=== PATIENT | female | born 2000 | race Caucasian/White ===

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

== ENCOUNTER 2018-01-31 10:15 | Emergency (ER) | payer OTHER ==
--- NOTE | 2018-01-31 10:44 | ED ---
GI/ HPI - HPI Summary HPI Summary: 17-year-old female presents with cough for the past couple days. She admits to lower abdominal pain. She states she may be . Last menstrual period was December 19. She states she's been having abnormal vaginal discharge. She was admits to dysuria urgency and frequency. She denies any flank pain. She states she's been having fevers. She states feels very fatigued. cough is dry. she also admits to sore throat. no sinus congestion. - History of Current Complaint Chief Complaint: UCGeneralIllness Time Seen by Provider: 01/31/18 10:34 Stated Complaint: COUGH,TIRED Hx Last Menstrual Period: 12/19/17 Pain Intensity: 0 - Allergy/Home Medications Allergies/Adverse Reactions: Allergies Allergy/AdvReac Type Severity Reaction Status Date / Time No Known Allergies Allergy Verified 01/31/18 10:30 Home Medications: Home Medications Acetaminophen [Acetaminophen Extra Strength] 1 tab PO TID PRN 01/31/18 [History Confirmed 01/31/18] PMH/Surg Hx/FS Hx/Imm Hx Endocrine/Hematology History: Denies: Hx Diabetes Cardiovascular History: Denies: Hx Hypertension, Hx Pacemaker/ICD Sensory History: Denies: Hx Hearing Aid Psychiatric History: Reports: Hx Anxiety - stopped prozac w/, Hx Depression - stopped prozac w/ Denies: Hx Eating Disorder, Hx Panic Disorder, Hx of Violent Episodes Against Others - Immunization History Date of Tetanus Vaccine: up to date Infectious Disease History: No Infectious Disease History: Denies: Traveled Outside the [place] in Last 30 Days - Family History Known Family History: Positive: Respiratory Disease, Other - asthma (Mother and Brother) - Social History Alcohol Use: Rare Substance Use Type: Reports: None Substance Use Comment - Amount & Last Used: in the past Smoking Status (MU): Light Every Day Tobacco Smoker Type: Cigarettes Amount Used/How Often: 1/2 ppd Length of Time of Smoking/Using Tobacco: started at age 14 Have You Smoked in the Last Year: No Review of Systems Positive: Fever Positive: Sore Throat Negative: Chest Pain Positive: Cough. Negative: Shortness Of Breath Positive: Abdominal Pain, Nausea, Other - vaginal discharge Positive: dysuria All Other Systems Reviewed And Are Negative: Yes Physical Exam Triage Information Reviewed: Yes Vital Signs On Initial Exam: Initial Vitals Temp Pulse Resp BP Pulse Ox 99.8 F 105 19 128/79 100 01/31/18 10:25 01/31/18 10:25 01/31/18 10:25 01/31/18 10:25 01/31/18 10:25 Vital Signs Reviewed: Yes Appearance: Positive: Well-Appearing Skin: Positive: Warm, Dry Head/Face: Positive: Normal Head/Face Inspection Eyes: Positive: Normal, EOMI, APARNA, Conjunctiva Clear ENT: Positive: Normal ENT inspection, Pharynx normal, TMs normal Neck: Positive: Supple, Nontender, No Lymphadenopathy Respiratory/Lung Sounds: Positive: Clear to Auscultation, Breath Sounds Present Cardiovascular: Positive: Normal, RRR Abdomen Description: Positive: Soft, Other: - suprapubic tenderness Bowel Sounds: Positive: Present Pelvic Exam: Positive: External Exam Normal, Discharge - yellow, Tender w/ Cervical Motion - not extremely tender, Other Musculoskeletal: Positive: Normal Neurological: Positive: Normal Psychiatric: Positive: Normal Diagnostics - Vital Signs Vital Signs Temp Pulse Resp BP Pulse Ox 01/31/18 10:25 99.8 F 105 19 128/79 100 - Laboratory Lab Statement: Any lab studies that have been ordered have been reviewed, and results considered in the medical decision making process. - Ultrasound No standard instances Ultrasound Interpretation Completed By: Radiologist Summary of Ultrasound Findings: IMPRESSION: There is an intrauterine gestational sac measuring 5 weeks 1 day. No . pole is identified. Follow- up exam is suggested. GIGU Course/Dx - Course Course Of Treatment: 17-year-old female presents with cough for the past couple days. She admits to lower abdominal pain. She states she may be . Last menstrual period was December 19. She states she's been having abnormal vaginal discharge. She was admits to dysuria urgency and frequency. She denies any flank pain. She states she's been having fevers. She states feels very fatigued. cough is dry. she also admits to sore throat. no sinus congestion. on exam lungs CTA. abd tenderness suprapubic. has abnormal yellow vaginal discharge on pelvic exam with mild CMT although patient appears comfortable unlike PID. pregancy positive. urine no infection. u/s shows early . will give rocephin and azithromycin. told if has persistent worsening pain, fever to go to ED for further lab work. blood pressure is in pre -htn range and can follow up with ob about such. stressed importance of ob follow up to make sure vaginal discharge symptoms resolve. discussed case with dr melendez. patient understand and agrees with plan. - Diagnoses Differential Diagnoses - Female: , Pelvic Inflammatory Disease, STD, Urinary Tract Infection Provider Diagnoses: Bronchitis, , Vaginal discharge Discharge - Sign-Out/Discharge Documenting (check all that apply): Patient Departure All imaging exams completed and their final reports reviewed: Yes - Discharge Plan Condition: Good Disposition: HOME Patient Education Materials: Acute Bronchitis (ED) Referrals: Albert Mccray MD [Primary Care Provider] - Maritza Bright MD [Medical Doctor] - Additional Instructions: pelvic culture taken will call if anything is abnormal Take Tylenol for pain every 6 hours Follow up with ob Return to ED if develop any new or worsening symptoms - Billing Disposition and Condition Condition: GOOD Disposition: Home
[2018-01-31] MEDS ORDERED: cefTRIAXone VIAL(*) 250 MG VIAL IM ONE (11:20)
[2018-01-31] MEDS ORDERED: Lidocaine 1% MPF* 2 ML VIAL INJ ONE ×2 (11:21→12:49)
[2018-01-31 12:43] VITALS: BP 115/59
[2018-01-31] MEDS ORDERED: Azithromycin TAB* 250 MG PO ONE (12:44)
[2018-01-31] MEDS ORDERED: Lidocaine 2% PF * 5 ML VIAL ONE (12:51)
[2018-01-31] MEDS ORDERED: Lidocaine 1%* 5 ML VIAL ONE (12:58)
[2018-01-31] MEDS ORDERED: Lidocaine 1%* 5 ML VIAL INJ ONE (13:00)
--- NOTE | 2018-02-01 11:14 | UC ---
- Progress Note Progress Note: Reviewed results as available, RN to call pt to start metronidazole gel (e- scribed today). Ms. Gastelum should follow up with Benefits Administrator and PCP as planned. Course/Dx - Diagnoses Provider Diagnoses: Bronchitis, , Vaginal discharge Discharge - Sign-Out/Discharge Documenting (check all that apply): Post-Discharge Follow Up All imaging exams completed and their final reports reviewed: Yes - Discharge Plan Condition: Good Disposition: HOME Prescriptions: metroNIDAZOLE VAGINAL 0.75%* 1 applic VAGINAL BEDTIME 7 Days #1 tube Patient Education Materials: Acute Bronchitis (ED) Referrals: Maritza Bright MD [Medical Doctor] - Albert Mccray MD [Primary Care Provider] - Additional Instructions: pelvic culture taken will call if anything is abnormal Take Tylenol for pain every 6 hours Follow up with ob Return to ED if develop any new or worsening symptoms - Billing Disposition and Condition Condition: GOOD Disposition: Home
== END 2018-01-31 13:15 | disposition home or self-care (01) ==
LOC: UCEAST 10:15
DX: O26.891 Other specified pregnancy related conditions, first trimester (principal); J40 Bronchitis, not specified as acute or chronic; N89.8 Other specified noninflammatory disorders of vagina; O99.331 Smoking (tobacco) complicating pregnancy, first trimester; F17.210 Nicotine dependence, cigarettes, uncomplicated; Z3A.00 Weeks of gestation of pregnancy not specified; N76.0 Acute vaginitis; B96.89 Other specified bacterial agents as the cause of diseases classified elsewhere
CPT/HCPCS: 76817; 81003; 84702; 87480; 87491; 87510; 87591; 87661; 96372; 99212; A9270-GY; G0463; J0696

== ENCOUNTER 2018-05-09 14:14 | Emergency (ER) | payer OTHER ==
[2018-05-09 14:39] VITALS: BP 116/71
--- NOTE | 2018-05-09 14:49 | UC ---
FLU HPI - HPI Summary HPI Summary: 17 y/o female presents to the urgent care c/o nausea , diarrhea, chills, body aches, cough, headache, congestion, dry heaves all since the 8th. Pt states hse is , unknown due date - History of Current Complaint Chief Complaint: UCGeneralIllness Stated Complaint: NAUSEA VOMITING Time Seen by Provider: 05/09/18 14:30 Hx Obtained From: Patient Hx Last Menstrual Period: [id number] ?: Yes - Possible 5 weeks Onset/Duration: Gradual Onset, Lasting Days - 4 days, Still Present Severity Currently: Mild Severity Initially: Moderate Pain Intensity: 7 Pain Scale Used: 0-10 Numeric Associated Signs & Symptoms: Positive: Myalgia, Cough - dry, Nasal Congestion - clear, Headache - mild. Negative: Fever - Risk Factors Influenza Risk Factors: Negative - Allergy/Home Medications Allergies/Adverse Reactions: Allergies Allergy/AdvReac Type Severity Reaction Status Date / Time No Known Allergies Allergy Verified 05/09/18 14:39 Home Medications: Home Medications Vit37/Iron/Folic Acid [Prenata] 1 chw PO DAILY 05/09/18 [History Confirmed 05/09/18] PMH/Surg Hx/FS Hx/Imm Hx Previously Healthy: Yes - Pt denies PMHX - Surgical History Surgical History: None - Family History Known Family History: Positive: Diabetes, Respiratory Disease, Other - asthma ( Mother and Brother) - Social History Occupation: Unemployed Lives: With Family Alcohol Use: Rare Substance Use Type: None Substance Use Comment - Amount & Last Used: in the past Smoking Status (MU): Former Smoker Type: Cigarettes Amount Used/How Often: 1/2 ppd Length of Time of Smoking/Using Tobacco: started at age 14 Have You Smoked in the Last Year: No Household Exposure Type: Cigarettes - Immunization History Most Recent Influenza Vaccination: 2013 Most Recent Tetanus Shot: UTD Most Recent Pneumonia Vaccination: none Vaccination Up to Date: Yes Review of Systems All Other Systems Reviewed And Are Negative: Yes Constitutional: Positive: Other - body aches Skin: Positive: Negative Eyes: Positive: Negative ENT: Positive: Nasal Discharge - clear, Sinus Congestion Respiratory: Positive: Cough - dry Cardiovascular: Positive: Negative Gastrointestinal: Positive: Vomiting - 1 episode daily, Diarrhea - 1 episode daily, Nausea Genitourinary: Positive: Negative Motor: Positive: Negative Neurovascular: Positive: Negative Musculoskeletal: Positive: Myalgia Neurological: Positive: Headache Psychological: Positive: Negative Is Patient Immunocompromised?: No Physical Exam - Summary Physical Exam Summary: VITAL SIGNS: Reviewed. GENERAL: Patient is a well developed and nourished female who is sitting comfortable in the examining table. Patient is not in any acute respiratory distress. HEAD AND FACE: No signs of trauma. No ecchymosis, hematomas or skull depressions. No sinus tenderness. EYES: PERRLA, EOMI x 2, No injected conjunctiva, no nystagmus. No photophobia. EARS: Hearing grossly intact. Ear canals and tympanic membranes are within normal limits. Nose: edematous and erythematous nasal mucosa w/ clear nasal discharge. MOUTH: Positive no erythema, no tonsillar enlargement. Uvula in midline. NECK: Supple, trachea is midline, Positive anterior cervical lymphadenopathy, no JVD, no carotid bruit, no c-spine tenderness, neck with full ROM. No meningeal signs, no Kernig's or brudzinskis signs. CHEST: Symmetric, no tenderness at palpation LUNGS: Clear to auscultation bilaterally. No wheezing or crackles. CVS: Regular rate and rhythm, S1 and S2 present, no murmurs or gallops appreciated. ABDOMEN: Soft, non-tender. No signs of distention. No rebound no guarding, and no masses palpated. Bowel sounds are normal. EXTREMITIES: FROM in all major joints, no edema, no cyanosis or clubbing. NEURO: Alert and oriented x 3. No acute neurological deficits. Speech is normal and follows commands. SKIN: Dry and warm Triage Information Reviewed: Yes Vital Signs: Initial Vital Signs Temp 99.0 F 05/09/18 14:33 Pulse 88 05/09/18 14:33 Resp 16 05/09/18 14:33 BP 116/71 05/09/18 14:33 Pulse Ox 99 05/09/18 14:33 Flu Course/Dx - Differential Dx/Diagnosis Differential Diagnosis/HQI/PQRI: Bronchitis, Influenza, Pneumonia, Upper Respiratory Infection Provider Diagnosis: Upper respiratory infection Discharge - Sign-Out/Discharge Documenting (check all that apply): Patient Departure - d/C home All imaging exams completed and their final reports reviewed: No Studies - Discharge Plan Condition: Stable Disposition: HOME Referrals: Albert Mccray MD [Primary Care Provider] - - Billing Disposition and Condition Condition: STABLE Disposition: Home
[2018-05-09 15:01] LABS: Influenza A Molecular NEGATIVE (Negative); Influenza B Molecular NEGATIVE (Negative)
== END 2018-05-09 15:35 | disposition home or self-care (01) ==
LOC: UCEAST 14:14
DX: J06.9 Acute upper respiratory infection, unspecified (principal); Z87.891 Personal history of nicotine dependence; R19.7 Diarrhea, unspecified
CPT/HCPCS: 81003; 87086; 99212; G0463

== ENCOUNTER 2018-10-10 15:19 | Emergency (ER) | payer OTHER ==
[2018-10-10 15:48] VITALS: BP 111/68
[2018-10-10] MEDS ORDERED: Lidocaine 2% PF * 5 ML VIAL INJ ONE (16:08)
--- NOTE | 2018-10-10 16:08 | UC ---
Skin Complaint HPI - HPI Summary HPI Summary: 17 yo female presents with tailbone bump noticed yesterday. Since that time has gotten larger and more painful. She has never had a pilonidal cyst in the past. No hx of injury to the area. No known hx of MRSA. Denies fevers or chills. Pt is currently 29weeks with her second child. - History of Current Complaint Chief Complaint: UCSkin Time Seen by Provider: 10/10/18 16:08 Stated Complaint: LUMP ON TAILBONE Hx Obtained From: Patient Hx Last Menstrual Period: [id number] Onset/Duration: Gradual Onset Onset Severity: Moderate Current Severity: Severe Pain Intensity: 8 - Allergy/Home Medications Allergies/Adverse Reactions: Allergies Allergy/AdvReac Type Severity Reaction Status Date / Time No Known Allergies Allergy Verified 10/10/18 15:48 PMH/Surg Hx/FS Hx/Imm Hx - Additional Past Medical History Additional PMH: None - Surgical History Surgical History: None - Family History Known Family History: Positive: Diabetes, Respiratory Disease, Other - asthma ( Mother and Brother) - Social History Occupation: Employed Full-time Lives: With Family Alcohol Use: Rare Substance Use Type: None Substance Use Comment - Amount & Last Used: in the past Smoking Status (MU): Former Smoker Type: Cigarettes Amount Used/How Often: 1/2 ppd Length of Time of Smoking/Using Tobacco: started at age 14 Have You Smoked in the Last Year: No Household Exposure Type: Cigarettes - Immunization History Most Recent Influenza Vaccination: 2012 Most Recent Tetanus Shot: UTD Most Recent Pneumonia Vaccination: none Vaccination Up to Date: Yes Review of Systems All Other Systems Reviewed And Are Negative: Yes Constitutional: Positive: Negative Skin: Positive: Other - Tailbone abscess Respiratory: Positive: Negative Cardiovascular: Positive: Negative Neurovascular: Positive: Negative Neurological: Positive: Negative Psychological: Positive: Negative Physical Exam - Summary Physical Exam Summary: GENERAL: NAD. WDWN. No pain distress. SKIN: Superior gluteal fold with 1.5cm area of fluctuance, tenderness, and erythema. Does not extend into anal region. No drainage or streaking. NECK: Supple. Nontender. No lymphadenopathy. CHEST: No accessory muscle use. Breathing comfortably and in no distress. CV: Pulses intact. Cap refill <2seconds NEURO: Alert. PSYCH: Age appropriate behavior. Triage Information Reviewed: Yes Vital Signs: Initial Vital Signs Temp 98.6 F 10/10/18 15:43 Pulse 85 10/10/18 15:43 Resp 16 10/10/18 15:43 BP 111/68 10/10/18 15:43 Pulse Ox 99 10/10/18 15:43 Vital Signs Reviewed: Yes Procedures - Incision and Drainage Upper Buttocks Anesthesia: Local, Lidocaine Instrument(s): Scalpel - #11 Packing: Other - none Course/Dx - Course Course Of Treatment: The procedure was explained to the pt and all questions were answered. A time out was performed, witnessed, and signed. The area was cleansed with an alcohol pad. 1mL of 2% lidocaine without epi was administered and good anesthetization was achieved. A #11 blade was used to make a 5mm incision at the site of the pilonidal abscess. Copious malodorus yellow material was expressed. The wound was bandaged with telfa. Pt tolerated procedure well. Dina SAUCEDA assisted with exam. Will place her on amoxicillin. - Diagnoses Provider Diagnosis: Pilonidal abscess Discharge - Sign-Out/Discharge Documenting (check all that apply): Patient Departure All imaging exams completed and their final reports reviewed: No Studies - Discharge Plan Condition: Stable Disposition: HOME Prescriptions: Amoxicillin PO (*) [Amoxicillin 500 MG CAP*] 500 mg PO Q12H #14 cap Patient Education Materials: Pilonidal Cyst (ED) Referrals: Albert Mccray MD [Primary Care Provider] - Additional Instructions: If you develop a fever, shortness of breath, chest pain, new or worsening symptoms - please call your PCP or go to the ED immediately. Change the dressing daily until well healed (3-4 days) - Billing Disposition and Condition Condition: STABLE Disposition: Home
== END 2018-10-10 16:45 | disposition home or self-care (01) ==
LOC: UCEAST 15:19
DX: L05.01 Pilonidal cyst with abscess (principal); Z87.891 Personal history of nicotine dependence
CPT/HCPCS: 10060; 99212; G0463